=== PATIENT | male | born 1995 | race Caucasian/White ===

== ENCOUNTER 2018-02-27 21:41 | Emergency (ER) | payer SELFPAY ==
[2018-02-27 21:44] VITALS: BP 130/77; PULSE 110; RESP 16; TEMP 37.5; O2SAT 96
--- NOTE | 2018-02-27 21:52 | DI.RAD_ITS ---
SYMPTOM/DIAGNOSIS: RT WRIST PAIN RIGHT WRIST: There is mild deformity of the distal fifth metacarpal which has the appearance of an old healed fracture. No acute fracture or dislocation is seen. IMPRESSION: No acute abnormality.
--- NOTE | 2018-02-27 21:55 | ED.GENADUL_ITS ---
Discharge Plan Disposition Patient Disposition: HOME Condition: Improving Discharge Details Chief Complaint: Orthopedic Clinical Impression: Contusion of right wrist Primary Care Provider: Lee Youngblood ED Provider: Giovanny Flaherty Home Meds and New Rx's Prescriptions: Continued sumatriptan succinate [Imitrex] 50 MG tablet 50 mg PO PRN PRNRF: 0 ProAir HFA 200 PUFF HFA aerosol inhaler 8.5 gm Inhalation PRN PRNRF: 0 ibuprofen 800 MG tablet 800 mg PO TID Qty: 30 RF: 0 Discharge Instructions Instructions: Contusion in Adults (ED) Additional Instructions: May use Rolando bandage as needed for 2-4 days time. Ice to reduce pain and swelling. Tylenol and/or ibuprofen as needed for discomfort Stand Alone Forms: Work Release Medical Decision Making 22-year-old male presents to the ER complaining of right wrist pain after contusion from a metallic object at work. Differential diagnosis includes contusion, underlying bony injury. X-ray of wrist obtained without underlying bony abnormality. Pt given rolando bandage, ice, ibuprofen. Consistent with contusion and strain. Discussed with him home management and return precautions. HPI General Mode of arrival: ambulatory . Date/Time Provider Initiated Documentation: 02/27/18 21:42 . Limitations to Documentation: no limitations . Information obtained by: patient . History of Present Illness 22 year old M presents to the emergency department with the chief complaint of Right wrist pain after metallic object struck it at work, described as moderate, Quality is described as aching, and is localized to the right and upper extremity. Patient proximal. Patient started experiencing this hour(s) and it has been constant. Cold therapy improves symptom(s), Movement worsens symptoms . Patient notes no other symptoms.. Patient did receive the following treatme nts prior to arrival, none Related Data Home Medications Medication Instructions Recorded Confirmed ProAir HFA 8.5 gm INHALATION PRN PRN 05/10/16 02/27/18 sumatriptan succinate [Imitrex] 50 mg PO PRN PRN 05/10/16 02/27/18 ibuprofen 800 mg PO TID #30 tablet 08/09/17 02/27/18 Previous Rx's Medication Instructions Recorded ibuprofen 800 mg PO TID #30 tablet 08/09/17 Allergies Allergy/AdvReac Type Severity Reaction Status Date / Time fluoxetine HCl [From Prozac] AdvReac Intermediate suicidal/ho Unverified 02/27/18 21:48 micidal prednisone AdvReac Intermediate violent/lety Unverified 02/27/18 21:48 tated General Stated Complaint: Orthopedic NEETA: 4 Review of Systems Review of Systems No numbness or tingling. No motor weakness. No other injury. For systems reviewed and otherwise negative PFSH Social History Smoking/Tobacco Use Status: Current every day Exam Narrative Exam Narrative: Systems reviewed and otherwise neg Course Vital Signs Temperature 37.5 C 02/27/18 21:44 Pulse 110 H 02/27/18 21:44 Respiratory Rate 16 02/27/18 21:44 Blood Pressure 130/77 02/27/18 21:44 Pulse Oximetry 96 02/27/18 21:44 Temperature 37.5 C 02/27/18 21:44 Temperature Source Temporal Artery Scan 02/27/18 21:44 Pulse 110 H 02/27/18 21:44 Respiratory Rate 16 02/27/18 21:44 Respiratory Effort 02/27/18 21:44 Blood Pressure 130/77 02/27/18 21:44 Blood Pressure Position Sitting 02/27/18 21:44 Pulse Oximetry 96 02/27/18 21:44 Oxygen Delivery Method Room Air 02/27/18 21:44 Oxygen Flow Rate 0 02/27/18 21:44 Pain Level 5 02/27/18 21:44
[2018-02-27] MEDS: Ibuprofen 800 MG TAB PO (22:15)
--- NOTE | 2018-02-27 22:34 | DI.VRAD_ITS ---
EXAM: XR Right Wrist Complete, 3 or more Views EXAM DATE/TIME: 02/27/2018 9:53 PM CLINICAL HISTORY: 22 years old, male; Pain; Wrist; Right; Patient HX: Pain in r wrist TECHNIQUE: XR Right wrist 3 or more views. COMPARISON: CR RIGHT INDEX FINGER 08/08/2017 9:56 PM FINDINGS: Bones/joints: Normal. Soft tissues: Normal. IMPRESSION: No acute fracture or malalignment. Dictated and Authenticated by: Joy Samuel MD. Ordering:JUDI Baltazar MD
== END 2018-02-28 02:22 | disposition home or self-care (01) ==
PROVIDERS: Emergency Provider Emergency Medicine; PCP Physician Assistant Medical
DX: S60.211A Contusion of right wrist, initial encounter (principal); W22.8XXA Striking against or struck by other objects, initial encounter; Y99.0 Civilian activity done for income or pay
CPT/HCPCS: 99283; 73110; 99282

== ENCOUNTER 2018-03-06 16:47 | Outpatient (CLI) | payer OTHER, SELFPAY ==
--- NOTE | 2018-03-06 15:19 | DI.RAD_ITS ---
SYMPTOM/DIAGNOSIS: TENDER SNUFF BOX, WRIST JOINT PAIN, M25.531 RIGHT WRIST: Four views. Comparison is made with 08/08/17. No bone or joint abnormality is identified. The soft tissues are unremarkable. No acute fracture or dislocation is seen. IMPRESSION: Negative examination.
== END 2018-03-06 17:07 ==
PROVIDERS: PCP Physician Assistant Medical; Visit Provider Specialist/Technologist Athletic Trainer
DX: M25.531 Pain in right wrist (principal)
CPT/HCPCS: 73110

== ENCOUNTER 2018-05-27 09:24 | Emergency (ER) | payer MEDICAID, SELFPAY ==
--- NOTE | 2018-05-27 09:25 | NUR.NOTE ---
pt states that last night he was drinking at a constitution party and was sitting cross leged and and when he wnet to stand up he heard a pop in his left knee pt states that he had 5/10 pain last night and upon waking up this morning it was 10 out of 10 at which point pt called the ambulance pt is unable to bare weight
[2018-05-27 09:28] VITALS: BP 132/78; PULSE 92; RESP 16; TEMP 37.1; O2SAT 96
[2018-05-27] MEDS: Acetaminophen 500 MG TAB (09:49)
[2018-05-27] MEDS: Ibuprofen 600 MG TAB (09:49)
--- NOTE | 2018-05-27 09:50 | ED.GENADUL_ITS ---
Discharge Plan Disposition Patient Disposition: HOME Condition: Stable Discharge Details Chief Complaint: Orthopedic Clinical Impression: Left knee sprain Primary Care Provider: Lee Youngblood ED Provider: Nikki Rojas Home Meds and New Rx's Prescriptions: New naproxen 250 mg tablet 250 mg PO BID PRN (Reason: pain) Qty: 20 RF: 0 Continued sumatriptan succinate [Imitrex] 50 MG tablet 50 mg PO PRN PRNRF: 0 albuterol sulfate [ProAir HFA] 200 PUFF HFA aerosol inhaler 8.5 gm Inhalation PRN PRNRF: 0 ibuprofen 800 MG tablet 800 mg PO TID Qty: 30 RF: 0 Discharge Instructions Instructions: Knee Sprain (ED) Additional Instructions: Rest, ice, elevate left knee is much as possible. Alternate Tylenol and naproxen as needed and directed for pain. You have no relief or worsening of symptoms in the next 1-2 weeks, follow-up with orthopedics for reevaluation and for referral for MRI if indicated. Return immediately to the emergency department with any worsening or new concerning symptoms. Discharge Data Discharge Physician: Nikki Rojas Medical Decision Making 22-year-old male who presents with left knee pain since last night, worse this morning after attempting to get out of bed. Developed knee pain last night after attempting to stand up from a crisscross position while sitting. States he felt a pop in the left knee. Patient has not taken anything for pain this morning. He called the ambulance due to his pain. Vitals within normal limits. No evidence of trauma to knee. No obvious ligamentous laxity. He has significant tenderness palpation in his left knee with any passive or active range of motion. He is neurovascularly intact. Will give a dose of Motrin and Tylenol and sent for left knee x-ray. 1100 --left knee x-ray negative for fracture. Discussed with patient that he may have a knee sprain. I do not see any obvious ligamentous instability on his exam, but if his symptoms do not improve or worsen over the next 1-2 weeks, he should follow-up with orthopedics for reevaluation and consideration for MRI. He is instructed to rest, ice, elevate. Will place a knee immobilizer and given crutches for pain relief. He is instructed to call orthopedics if symptoms do not improve or worsen, and to return to the emergency department with any concerns. HPI General Mode of arrival: ambulatory . Date/Time Provider Initiated Documentation: 05/27/18 09:41 . Limitations to Documentation: no limitations . Information obtained by: patient . HPI Narrative: Patient is a 22-year-old male presents with left knee pain since last night and worse this morning and unable to get out of bed. Patient states last night he was drinking alcohol when he was sitting in a crisscross position on the floor and he attempted to stand up and felt a pop in his left knee. He states he was intoxicated last night and did not notice the significant pain and went to bed. He did not take anything for pain. He states he awoke this morning and attempted to get out of bed and noted significant left knee pain. He has not taken anything for pain this morning and called the ambulance. Related Data Home Medications Medication Instructions Recorded Confirmed albuterol sulfate [ProAir HFA] 8.5 gm INHALATION PRN PRN 05/10/16 05/27/18 sumatriptan succinate [Imitrex] 50 mg PO PRN PRN 05/10/16 05/27/18 ibuprofen 800 mg PO TID #30 tablet 08/09/17 05/27/18 naproxen 250 mg PO BID PRN #20 tab 05/27/18 Previous Rx's Medication Instructions Recorded ibuprofen 800 mg PO TID #30 tablet 08/09/17 naproxen 250 mg PO BID PRN #20 tab 05/27/18 Allergies Allergy/AdvReac Type Severity Reaction Status Date / Time fluoxetine HCl [From Prozac] AdvReac Intermediate suicidal/ho Unverified 05/27/18 09:32 micidal prednisone AdvReac Intermediate violent/lety Unverified 05/27/18 09:32 tated General Stated Complaint: Orthopedic NEETA: 3 Review of Systems Review of Systems All systems reviewed & are unremarkable except as noted in HPI and below Constitutional Reports as per HPI, Denies chills and Denies fever(s) Eyes Denies blurry vision ENT Denies dizziness, Denies sore throat and Denies throat swelling Cardiovascular Denies chest pain and Denies dyspnea Respiratory Denies cough and Denies dyspnea Gastrointestinal Denies abdominal pain, Denies diarrhea and Denies vomiting Genitourinary Denies hematuria and Denies dysuria Musculoskeletal Denies back pain, Denies numbness and Reports other (L knee pain) Integumentary/Breasts Denies lesions and Denies rash Neurologic Denies dizziness, Denies focal weakness and Denies numbness Allergic/Immunologic Denies throat swelling [facility] Medical History Cluster headache (Acute) Fibromyalgia (Acute) Asthma (Chronic) Migraine (Chronic) Surgical History History of facial surgery (Acute) History of appendectomy (Chronic) Social History Smoking/Tobacco Use Status: Current every day Tobacco Type: cigarettes Alcohol Intake: current Alcohol Intake frequency: a few times a month Alcohol type: beer and hard liquor Drug use: Occasionally Substance use type: marijuana Do you feel safe at home: Yes Do you feel safe in your relationship?: Yes Exam Const General: cooperative, healthy appearing and no acute distress HENMT Head: normal to inspection Mouth: oral mucosae normal Eyes General: appearance normal, both eyes and all related structures Neck Neck: normal visual inspection Resp Effort & Inspection: normal respiratory effort and able to speak in complete sentences Cardio Rate: regular rate Skin General skin exam: no rashes or lesions noted Neuro General: alert, awake and oriented x3 Motor: muscle tone normal throughout Extrem Other: Significant pain with any range of motion active or passive of the left knee. There is no edema, ecchymosis, erythema. Negative anterior and posterior drawer test. No laxity with valgus or varus stress. Unable to check Destinee's test due to significant pain. No pain in left hip with range of motion. Normal left lower leg, ankle and foot exam without tenderness, edema, ecchymosis or deformity. Left DP/PT pulses intact. Psych Appearance: grossly normal Affect: normal affect Course Vital Signs Temperature 98.8 F 05/27/18 09:28 Pulse 92 H 05/27/18 09:28 Respiratory Rate 16 05/27/18 09:28 Blood Pressure 132/78 05/27/18 09:28 Pulse Oximetry 96 05/27/18 09:28 Temperature 98.8 F 05/27/18 09:28 Temperature Source Skin 05/27/18 09:28 Pulse 92 H 05/27/18 09:28 Respiratory Rate 16 05/27/18 09:28 Respiratory Effort 05/27/18 09:36 Blood Pressure 132/78 05/27/18 09:28 Blood Pressure Position Sitting 05/27/18 09:28 Pulse Oximetry 96 05/27/18 09:28 Oxygen Delivery Method Room Air 05/27/18 09:28 Oxygen Flow Rate 0 05/27/18 09:28 Pain Level 10 05/27/18 09:28
--- NOTE | 2018-05-27 10:15 | DI.RAD_ITS ---
SYMPTOM/DIAGNOSIS: S/P TWISTING INJURY, PAIN, ? FX OR EFFUSION LEFT KNEE: Five views were obtained. No fracture is seen.
--- NOTE | 2018-05-27 10:40 | DI.VRAD_ITS ---
EXAM: XR Left Knee, 4 or more Views EXAM DATE/TIME: 05/27/2018 9:50 AM CLINICAL HISTORY: 22 years old, male; Pain; Knee; Left; Patient HX: S/P twisting left knee, R/O acute fracture/ effusion. TECHNIQUE: Imaging protocol: XR Left knee 4 or more views. COMPARISON: CR LEFT TIB/FIB 11/12/2015 5:35 PM FINDINGS: Bones/joints: Normal. Soft tissues: Normal. IMPRESSION: No acute findings. Dictated and Authenticated by: Perry Mclain MD. Ordering:OLGA Jordan MD
[2018-05-27 12:03] VITALS: BP 132/78; PULSE 88; RESP 16; TEMP 37.1; O2SAT 96
== END 2018-05-27 12:07 | disposition home or self-care (01) ==
PROVIDERS: Emergency Provider Physician Assistant; PCP Physician Assistant Medical
DX: S83.92XA Sprain of unspecified site of left knee, initial encounter (principal)
CPT/HCPCS: 29505; 99283; 73564; 99282; E0114; L1830

== ENCOUNTER 2019-11-12 12:50 | Emergency (ER) | payer MEDICAID, SELFPAY ==
--- NOTE | 2019-11-12 12:45 | DI.US_ITS ---
EXAM: US SCROTUM CLINICAL HISTORY: R testile pain TECHNIQUE: Ultrasound performed using standard protocol. COMPARISON: No exams were available for comparison FINDINGS: The testes are normal in size and shape. Normal echotexture of the testes. Normal symmetrical testi cular vascular flow on Doppler evaluation. The right epididymis is hypoechoic and shows increased vascularity, the findings are suggestive of an inflammatory process. Left epididymis is unremarkable. Minimal right hydrocele. IMPRESSION: No evidence testicular torsion. Findings are suggestive of a right epididymitis. DATA REPOSITORY:
[2019-11-12 12:53] VITALS: BP 139/99; PULSE 107; RESP 16; TEMP 37.2; O2SAT 95
[2019-11-12 13:19] LABS: Bilirubin Negative (Negative); Blood Negative (Negative); Clarity Sl Cloudy (Clear); Glucose Negative (Negative); Ketones Negative (Negative); Leukocyte Esterase Negative (Negative); Nitrite Negative (Negative); Specific Gravity >= 1.030 (1.005-1.025); Urobilinogen 0.2 EU/dL (Up TO 0.2); pH 5.5 (5-8)
--- NOTE | 2019-11-12 13:29 | ED.GENADUL_ITS ---
Discharge Plan Disposition Patient Disposition: HOME Condition: Stable Discharge Details Clinical Impression: Epididymitis Primary Care Provider: Lee Youngblood ED Provider: James Roe Home Meds and New Rx's Prescriptions: New doxycycline hyclate 100 mg capsule 100 mg PO BID 14 Days Qty: 28 RF: 0 naproxen [Naprosyn] 500 mg tablet 500 mg PO BID PRNQty: 20 RF: 0 Continued sumatriptan succinate [Imitrex] 50 MG tablet 50 mg PO PRN PRNRF: 0 albuterol sulfate [ProAir HFA] 200 PUFF HFA aerosol inhaler 8.5 gm Inhalation PRN PRNRF: 0 duloxetine [Cymbalta] 30 mg Capsule,Delayed Release(Dr/Ec) 30 mg PO DAILY RF: 0 Discontinued naproxen 250 mg tablet 250 mg PO BID PRN (Reason: pain) Qty: 20 RF: 0 ibuprofen 800 MG tablet 800 mg PO TID Qty: 30 RF: 0 Discharge Instructions Instructions: Epididymitis (ED) Additional Instructions: Naprosyn and doxycycline as directed. As we discussed, GC and chlamydia testing pending. You may find more relief with wearing more firm, tight fitting underwear for support. Please watch for new or worsening symptoms and return to the ER for any concerns. I personally spoke with our neurology team, they are aware of you and will follow you as an outpatient. I will give you their name and number, contact their office tomorrow. Referrals: Elina Gonzalez, SHANI [NURSE PRACTITIONER] - Medical Decision Making 23-year-old gentleman reports right testicular discomfort that began yesterday was dull and aching in progressed to now more severe. He reports that he is sexually active with his , only one partner, no STD exposure. Denies fever, abdominal pain, nausea, vomiting, dysuria, hematuria. He presents with tachycardia and hypertensive. I believe that his examination is most consistent with epididymitis but given his discomfort, abnormal vital signs certainly cannot rule out testicular torsion. Less likely on my differential would be hydrocele, varicocele, inguinal hernia, STD, atypical stone, appendicitis. Will obtain urinalysis, test for GC and chlamydia, and obtain ultrasound. I did page urology. Ultrasound read by radiology as no evidence of testicular torsion. Findings are suggestive of right epididymitis. I was able to speak with LOCOMOTIVE DRIVER Elina Gonzalez, she will be happy to follow the patient in the outpatient clinic. I will give 60 IM Toradol now. We will give 250 IM Rocephin now and a prescription for both Naprosyn and doxycycline. We did discuss wearing a more firm fitting underwear which may be more comfortable. GC and Chlamydia are pending. Medical Records Medical records reviewed: Yes I reviewed the patient's medical records. Lab Data Lab results reviewed: Yes I reviewed the patient's lab results. Lab results narrative: Laboratory Tests Range/Units 11/12/19 13:08 Urine Color (Yellow) Yellow Urine Clarity (Clear) Sl cloudy Urine pH (5-8) 5.5 Ur Specific Nelson (1.005-1.025) >= 1.030 H Urine Protein (Negative) mg/dL Negative Urine Ketones (Negative) mg/dL Negative Urine Blood (Negative) Negative Urine Nitrite (Negative) Negative Urine Bilirubin (Negative) Negative Urine Urobilinogen (Up TO 0.2) EU/dL 0.2 Ur Leukocyte Esterase (Negative) Negative Urine Glucose (Negative) mg/dL Negative HPI General Mode of arrival: ambulatory . Date/Time Provider Initiated Documentation: 11/12/19 12:57 . Limitations to Documentation: no limitations . Information obtained by: patient . HPI Narrative: This is a 23-year-old gentleman with history of asthma, cluster headaches, fibromyalgia, presenting to the ER for evaluation of right-sided scrotal-testicular pain, that began yesterday afternoon as a dull ache. Reports the pain has progressively gotten worse. He reports at this time the pain is rather severe, even walking is very painful. He denies recent illness or trauma. Denies fever, nausea, vomiting, new back pain, penile pain or discharge. Denies dysuria or hematuria. He is sexually active with one partner, the same partner for the past 4 years. Denies any protection. No history or suspicion of STD exposure. He reports that the pain does occasionally shoot up into his right groin. Denies abdominal pain. Related Data Home Medications Medication Instructions Recorded Confirmed albuterol sulfate [ProAir HFA] 8.5 gm INHALATION PRN PRN 05/10/16 11/12/19 sumatriptan succinate [Imitrex] 50 mg PO PRN PRN 05/10/16 11/12/19 doxycycline hyclate 100 mg PO BID 14 Days #28 cap 11/12/19 duloxetine [Cymbalta] 30 mg PO DAILY 11/12/19 11/12/19 naproxen [Naprosyn] 500 mg PO BID PRN #20 tab 11/12/19 Previous Rx's Medication Instructions Recorded doxycycline hyclate 100 mg PO BID 14 Days #28 cap 11/12/19 naproxen [Naprosyn] 500 mg PO BID PRN #20 tab 11/12/19 Allergies Allergy/AdvReac Type Severity Reaction Status Date / Time fluoxetine HCl [From Prozac] AdvReac Intermediate suicidal/ho Unverified 11/12/19 12:57 micidal prednisone AdvReac Intermediate violent/lety Unverified 11/12/19 12:57 tated General Stated Complaint: Urinary NEETA: 3 Review of Systems Constitutional Constitutional: Denies fever(s) and Denies weakness Gastrointestinal Gastrointestinal: Denies abdominal pain, Denies nausea and Denies vomiting Genitourinary Genitourinary: Denies hematuria, Denies difficulty urinating, Denies difficulty with ejaculations, Denies genital lesions, Denies dysuria, Denies painful ejaculations, Denies penile discharge, Denies scrotal swelling, Denies testicular mass, Reports testicular pain, Denies urinary frequency, Denies urinary hesitancy and Denies urinary urgency Musculoskeletal Musculoskeletal: Reports back pain (Chronic, baseline), Denies numbness and Denies tingling Integumentary/Breasts Skin/Breast: Denies rash Neurologic Neurologic: Denies numbness, Denies tingling and Denies weakness [facility] Medical History (Updated 11/12/19 @ 15:24 by KA[facility] Thompson) Asthma Cluster headache Fibromyalgia Migraine Surgical History History of appendectomy History of facial surgery due to dog bite as a child Social History Smoking/Tobacco Use Status: Current every day Tobacco Type: cigarettes Alcohol Intake: current Alcohol Intake frequency: a few times a month Alcohol type: beer and hard liquor Drug use: Occasionally Substance use type: marijuana Do you feel safe at home: Yes Do you feel safe in your relationship?: Yes Exam Const General: cooperative, healthy appearing, comfortable and no acute distress Orientation: alert and awake HENTN Head: normal to inspection, normocephalic and atraumatic Mouth: moist mucous membranes Eyes Conjunctivae: conjunctivae normal Sclera: sclerae normal Neck Neck: normal visual inspection, full ROM, trachea midline and supple Resp Effort & Inspection: normal respiratory effort and able to speak in complete sentences Cardio Rate: regular rate Rhythm: regular rhythm GI Inspection: normal to inspection Palpation: soft, not firm, no guarding, not rigid and nontender Auscultation: normal bowel sounds Male General Exam: Yes normal external exam Penis: normal penis Meatus: meatus normal Scrotum: scrotum normal, no inguinal hernias and no masses Testes: testicular lie normal and epididymal tenderness on the right Back/Spine/Pelvis Back: No back tenderness Skin General skin exam: no rashes or lesions noted Neuro General: patient alert, patient awake, moves all extremities and no focal motor deficits Gait: antalgic Sensory Exam: no sensory deficits noted Psych Appearance: grossly normal Mental Status: mental status grossly normal Course Vital Signs Vital signs: Vital Signs Temperature 37.2 C 11/12/19 12:53 Pulse 107 H 11/12/19 12:53 Respiratory Rate 16 11/12/19 12:53 Blood Pressure 139/99 H 11/12/19 12:53 Pulse Oximetry 95 11/12/19 12:53 Temperature 37.2 C 11/12/19 12:53 Pulse 107 H 11/12/19 12:53 Respiratory Rate 16 11/12/19 12:53 Respiratory Effort Non-Labored 11/12/19 12:53 Blood Pressure 139/99 H 11/12/19 12:53 Blood Pressure Position Sitting 11/12/19 12:53 Pulse Oximetry 95 11/12/19 12:53 Oxygen Delivery Method Room Air 11/12/19 12:53 Oxygen Flow Rate 0 11/12/19 12:53 Pain Level 9 11/12/19 13:02 Lab/Test Results Lab/Test Results: Laboratory Tests Range/Units 11/12/19 13:08 Urine Color (Yellow) Yellow Urine Clarity (Clear) Sl cloudy Urine pH (5-8) 5.5 Ur Specific Nelson (1.005-1.025) >= 1.030 H Urine Protein (Negative) mg/dL Negative Urine Ketones (Negative) mg/dL Negative Urine Blood (Negative) Negative Urine Nitrite (Negative) Negative Urine Bilirubin (Negative) Negative Urine Urobilinogen (Up TO 0.2) EU/dL 0.2 Ur Leukocyte Esterase (Negative) Negative Urine Glucose (Negative) mg/dL Negative
[2019-11-12 15:06] VITALS: BP 134/75; PULSE 77; O2SAT 96
[2019-11-12] MEDS: Ketorolac 60 MG/2 ML VIAL IM (15:28)
[2019-11-12] MEDS: cefTRIAXone 250 MG VIAL IM (15:29)
[2019-11-12] MEDS: Lidocaine 1% Multi-Dose 50 ML VIAL (15:33)
--- NOTE | 2019-11-12 15:51 | NUR.NOTE ---
Nursing Note: Faxed to [facility] for follow up. Consulted with Elina Gonzalez. Kelly Gardner
[2019-11-13 14:51] LABS: Chlamydia Result Negative (Negative); GC Result Negative (Negative)
== END 2019-11-12 15:43 | disposition home or self-care (01) ==
PROVIDERS: Emergency Provider Physician Assistant; PCP Physician Assistant Medical
DX: N45.1 Epididymitis (principal)
CPT/HCPCS: 87491; 87591; 96372; 99284; 76870; 81003; J0696; J1885

== ENCOUNTER 2019-12-17 08:32 | Outpatient (REF) | payer MEDICAID, SELFPAY ==
[2019-12-17 17:33] LABS: PSA, Screening 0.5 ng/mL (0.0-2.5)
== END 2019-12-17 08:52 ==
LOC: LBN 08:32
PROVIDERS: PCP Physician Assistant Medical; Visit Provider Nurse Practitioner Gerontology
DX: N40.1 Benign prostatic hyperplasia with lower urinary tract symptoms (principal); Z80.42 Family history of malignant neoplasm of prostate
CPT/HCPCS: 84153

== ENCOUNTER 2020-05-17 06:59 | Emergency (ER) | payer MEDICAID, SELFPAY ==
[2020-05-17 07:05] VITALS: BP 150/77; PULSE 94; RESP 16; TEMP 36.7; O2SAT 95
--- NOTE | 2020-05-17 07:15 | DI.RAD_ITS ---
EXAM: XR FEMUR RT CLINICAL HISTORY: laceration, assess for fb glass. TECHNIQUE: 2D digital imaging was performed. COMPARISON: CR LEFT TIB/FIB from 11/12/2015 FINDINGS: No evidence of right hip no right femur fracture. There appears to be a laceration on the lateral as pect of the thigh. There is no radiopaque foreign body evident at this level nor elsewhere. No radiographic evidence of osteomyelitis. IMPRESSION: DATA REPOSITORY: RADIATION DOSE DELIVERED:
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
[2020-05-17] MEDS: Lidocaine/Epinephri/Tetracaine Topical Gel 3 ML (07:37)
--- NOTE | 2020-05-17 08:08 | DI.VRAD_ITS ---
PROCEDURE INFORMATION: Exam: XR Right Femur Exam date and time: 05/17/2020 7:18 AM Age: 24 years old Clinical indication: Other: Laceration, assess for fb glass TECHNIQUE: Imaging protocol: XR Right femur. Views: 2 views. COMPARISON: No relevant prior studies available. FINDINGS: Bones/joints: No acute bony injury or malalignment. Soft tissues: Subcutaneous emphysema, without radiopaque soft tissue foreign body. IMPRESSION: Subcutaneous emphysema, without radiopaque soft tissue foreign body. Dictated and Authenticated by: Villa Bailey MD. Ordering:ALEXX Connell MD
== END 2020-05-17 08:52 | disposition home or self-care (01) ==
LOC: ER 08:46
PROVIDERS: Emergency Provider Student in an Organized Health Care Education/Training Program; PCP Physician Assistant Medical
DX: S71.111A Laceration without foreign body, right thigh, initial encounter (principal); W01.198A Fall on same level from slipping, tripping and stumbling with subsequent striking against other object, initial encounter; W25.XXXA Contact with sharp glass, initial encounter
CPT/HCPCS: 12004; 73552; 99281